=== PATIENT | male | born 1960 | race Caucasian/White ===

== ENCOUNTER 2021-04-06 08:00 | Outpatient (CLI) | payer MEDICARE ==
[2021-04-06 17:52] LABS: BASOPHILS # (AUTO) 0.1 10^3/uL (0.0-0.1); BASOPHILS % (AUTO) 0.8 %; EOSINOPHILS # (AUTO) 0.2 10^3/uL (0.0-0.7); EOSINOPHILS % (AUTO) 2.4 %; HCT - HEMATOCRIT 46.6 % (42.0-52.0); HGB - HEMOGLOBIN 15.1 g/dL (14.0-18.0); LYMPHOCYTES # (AUTO) 1.8 10^3/uL (1.5-3.5); LYMPHOCYTES % (AUTO) 23.8 %; MEAN CORPUSCULAR HEMOGLOBIN 31.1 pg (27.0-31.0); MEAN CORPUSCULAR HGB CONC 32.4 g/dL (32.0-36.0); MEAN CORPUSCULAR VOLUME 95.9 fL (80.0-94.0); MEAN PLATELET VOLUME 10.7 fL (7.4-11.4); MONOCYTES # (AUTO) 0.7 10^3/uL (0.0-1.0); MONOCYTES % (AUTO) 8.7 %; NEUTROPHILS # (AUTO) 4.8 10^3/uL (1.5-6.6); NEUTROPHILS % (AUTO) 63.8 %; PLT - PLATELET COUNT 98 10^3/uL (130-450); RED BLOOD COUNT 4.86 10^6/uL (4.70-6.10); RED CELL DISTRIBUTION WIDTH 13.5 % (12.0-15.0); WHITE BLOOD COUNT 7.5 x10^3/uL (4.8-10.8)
[2021-04-06 17:58] LABS: SLIDE REVIEW? Indicated
[2021-04-06 18:20] LABS: ALBUMIN 4.3 g/dL (3.2-5.5); ALBUMIN/GLOBULIN RATIO 1.1 (1.0-2.2); ALKALINE PHOSPHATASE 49 IU/L (42-121); ALT ALANINE AMINOTRANSFERASE 20 IU/L (10-60); AST ASPARTATE AMINOTRANSFERASE 22 IU/L (10-42); BILIRUBIN,TOTAL 1.2 mg/dL (0.2-1.0); BUN - BLOOD UREA NITROGEN 13 mg/dL (6-20); CALCIUM 9.4 mg/dL (8.5-10.3); CARBON DIOXIDE - CO2 27 mmol/L (21-32); CHLORIDE 106 mmol/L (101-111); CHOL/HDL RATIO 5.3 (<5.0); CHOLESTEROL 249 mg/dL; CREATININE 0.9 mg/dL (0.6-1.2); GFR - MDRD 86 (>89); GLUCOSE 105 mg/dL (70-100); HDL CHOLESTEROL 47 mg/dL; LDL CHOLESTEROL,CALCULATED 176 mg/dL; LDL/HDL RATIO 3.7 (<3.6); POTASSIUM 4.2 mmol/L (3.5-5.0); SODIUM 141 mmol/L (135-145); TOTAL PROTEIN 8.2 g/dL (6.7-8.2); TRIGLYCERIDES 130 mg/dL; VLDL CHOLESTEROL 26 mg/dL
[2021-04-06 18:22] LABS: THYROID STIMULATING HORMONE 0.84 uIU/mL (0.34-5.60)
[2021-04-06 18:23] LABS: PLATELET ESTIMATE, MANUAL DECREASED (<130,000) (NORMAL); PLATELET MORPHOLOGY NORMAL APPEARANCE (NORMAL); RBC MORPHOLOGY (MULTIPLE) NORMAL APPEARANCE (NORMAL); WBC MORPHOLOGY (MULTIPLE) NORMAL APPEARANCE (NORMAL)
== END 2021-04-06 23:59 | disposition home or self-care (01) ==
LOC: LAB.N 08:00
PROVIDERS: ATTEND Physician Assistant Medical
DX: I10 Essential (primary) hypertension (principal); Z12.5 Encounter for screening for malignant neoplasm of prostate
CPT/HCPCS: 36415; 80053; 80061; 84443; 85025; G0103; 83721; 84153

== ENCOUNTER 2021-05-02 13:12 | Outpatient (CLI) | payer MEDICARE | END 2021-05-02 13:13 | disposition critical access hospital (66) | LOC: EMS 13:12 | DX: R56.9 Unspecified convulsions (principal) | CPT/HCPCS: A0425; A0427 ==

== ENCOUNTER 2021-05-02 13:31 | Emergency (ER) | payer MEDICARE ==
[2021-05-02 14:09] LABS: BASOPHILS # (AUTO) 0.1 10^3/uL (0.0-0.1); BASOPHILS % (AUTO) 0.5 %; EOSINOPHILS # (AUTO) 0.2 10^3/uL (0.0-0.7); EOSINOPHILS % (AUTO) 1.7 %; HCT - HEMATOCRIT 45.6 % (42.0-52.0); HGB - HEMOGLOBIN 15.1 g/dL (14.0-18.0); MEAN CORPUSCULAR HEMOGLOBIN 31.3 pg (27.0-31.0); MEAN CORPUSCULAR HGB CONC 33.1 g/dL (32.0-36.0); MEAN CORPUSCULAR VOLUME 94.4 fL (80.0-94.0); MEAN PLATELET VOLUME 9.8 fL (7.4-11.4); MONOCYTES # (AUTO) 0.7 10^3/uL (0.0-1.0); MONOCYTES % (AUTO) 5.8 %; NEUTROPHILS # (AUTO) 9.5 10^3/uL (1.5-6.6); NEUTROPHILS % (AUTO) 75.1 %; PLT - PLATELET COUNT 203 10^3/uL (130-450); RED BLOOD COUNT 4.83 10^6/uL (4.70-6.10); WHITE BLOOD COUNT 12.7 x10^3/uL (4.8-10.8)
[2021-05-02] MEDS ORDERED: BACITRACIN ZINC OINT 1 PACKET TOP STA (14:13)
--- NOTE | 2021-05-02 14:13 | ED Physician Documentation ---
History of Present Illness - Stated complaint Stated Complaint: SZ - Chief complaint Chief Complaint: Neuro - History obtained from History obtained from: Patient, EMS - History of Present Illness Timing: Today Pain level max: 6 Pain level now: 5 - Additonal information Additional information: Patient is a 60-year-old male who states that he was out in his yard today and woke up on the ground. Unsure what happened. EMS states that the neighbors reported seeing him have a seizure. Patient states he has no history of seizures. Does have a history of skin cancer affecting the left shoulder and left side of the neck. No known metastases. He has been followed by dermatology for this. Denies any alcohol use. Denies any drug use. Other than marijuana. Patient is not on blood thinners. Currently complains of a headache, neck pain and facial pain. Patient states that his skin cancer is not melanoma. He believes it is a basal cell carcinoma. Review of Systems Ten Systems: 10 systems reviewed and negative Constitutional: denies: Fever, Chills Nose: denies: Rhinorrhea / runny nose, Congestion Throat: denies: Dental pain / toothache, Sore throat Cardiac: denies: Chest pain / pressure, Palpitations Respiratory: denies: Cough GI: reports: Nausea, Vomiting (after the seizure). denies: Abdominal Pain, Diarrhea Skin: denies: Rash Musculoskeletal: denies: Neck pain, Back pain Neurologic: denies: Headache PD PAST MEDICAL HISTORY - Past Medical History Past Medical History: Yes Cardiovascular: Hypertension - Past Surgical History Past Surgical History: No - Allergies Allergies/Adverse Reactions: Allergies Allergy/AdvReac Type Severity Reaction Status Date / Time Unable to Assess Allergy Verified 05/02/21 13:41 - Social History Does the pt smoke?: Yes Smoking Status: Former smoker Does the pt drink ETOH?: Yes Does the pt have substance abuse?: No - Immunizations Immunizations are current?: Yes - POLST Patient has POLST: No PD ED PE NORMAL - Vitals Vital signs reviewed: Yes - General General: Alert and oriented X 3, No acute distress, Well developed/nourished - HEENT HEENT: PERRL, EOMI, Moist mucous membranes, Other (Abrasions to the bridge of the nose, bruising to the forehead and the left side of the face. Mild bite to the left side of the tongue. Otherwise normal examination. Mild tenderness diffusely over the face) - Neck Neck: Supple, no meningeal sign, Other (Mild upper C-spine tenderness to palpation. No step-off or deformity) - Cardiac Cardiac: RRR, Strong equal pulses - Respiratory Respiratory: No respiratory distress, Clear bilaterally - Abdomen Abdomen: Normal bowel sounds, Soft, Non tender, Non distended - Back Back: No spinal TTP - Derm Derm: Warm and dry, Other (Abrasions to the bilateral hands and arms.) - Extremities Extremities: No edema, No calf tenderness / cord - Neuro Neuro: Alert and oriented X 3, inserting press operator 2-12 intact, No motor deficit, No sensory deficit, Normal speech Eye Opening: Spontaneous Motor: Obeys Commands Verbal: Oriented GCS Score: 15 - Psych Psych: Normal mood, Normal affect Results - Vitals Vitals: Vital Signs - 24 hr 05/02/21 05/02/21 05/02/21 13:37 15:41 16:26 Temperature 36.4 C L 37.0 C Heart Rate 94 63 90 Respiratory 16 14 18 Rate Blood Pressure 145/99 H 157/93 H 151/93 H O2 Saturation 98 98 97 Oxygen O2 Source Room air - Labs Labs: Laboratory Tests 05/02/21 05/02/21 05/02/21 13:43 14:05 14:05 WBC 12.7 H RBC 4.83 Hgb 15.1 Hct 45.6 MCV 94.4 H MCH 31.3 H MCHC 33.1 RDW 13.0 Plt Count 203 MPV 9.8 Neut # (Auto) 9.5 H Lymph # (Auto) 2.0 Russell # (Auto) 0.7 Eos # (Auto) 0.2 Baso # (Auto) 0.1 Absolute Nucleated RBC 0.00 Nucleated RBC % 0.0 Sodium 138 Potassium 4.2 Chloride 103 Carbon Dioxide 19 L Anion Gap 16.0 H BUN 12 Creatinine 1.0 Estimated GFR (MDRD) 76 L Glucose 158 H Calcium 9.7 Total Bilirubin 0.7 AST 24 ALT 19 Alkaline Phosphatase 58 Total Protein 8.3 H Albumin 4.4 Globulin 3.9 Albumin/Globulin Ratio 1.1 Lipase 25 TSH Urine Color YELLOW Urine Clarity CLEAR Urine pH 5.5 Ur Specific [place] >=1.030 H Urine Protein 100 H Urine Glucose (UA) NEGATIVE Urine Ketones NEGATIVE Urine Occult Blood MODERATE H Urine Nitrite NEGATIVE Urine Bilirubin NEGATIVE Urine Urobilinogen 0.2 (NORMAL) Ur Leukocyte Esterase NEGATIVE Urine RBC 6-10 H Urine WBC 0-3 Ur Squamous Epith Cells RARE Squamous Urine Bacteria Rare Urine Mucus Few Strands Ur Microscopic Review INDICATED Urine Culture Comments NOT INDICATED Salicylates < 6.0 Urine Opiates Screen NEGATIVE Ur Oxycodone Screen NEGATIVE Urine Methadone Screen NEGATIVE Ur Propoxyphene Screen NEGATIVE Acetaminophen < 10 L Ur Barbiturates Screen NEGATIVE Ur Tricyclics Screen NEGATIVE Ur Phencyclidine Scrn NEGATIVE Ur Amphetamine Screen NEGATIVE U Methamphetamines Scrn NEGATIVE U Benzodiazepines Scrn NEGATIVE Urine Cocaine Screen NEGATIVE U Cannabinoids Screen POSITIVE H Ethyl Alcohol < 5.0 05/02/21 14:05 WBC RBC Hgb Hct MCV MCH MCHC RDW Plt Count MPV Neut # (Auto) Lymph # (Auto) Russell # (Auto) Eos # (Auto) Baso # (Auto) Absolute Nucleated RBC Nucleated RBC % Sodium Potassium Chloride Carbon Dioxide Anion Gap BUN Creatinine Estimated GFR (MDRD) Glucose Calcium Total Bilirubin AST ALT Alkaline Phosphatase Total Protein Albumin Globulin Albumin/Globulin Ratio Lipase TSH 2.33 Urine Color Urine Clarity Urine pH Ur Specific [place] Urine Protein Urine Glucose (UA) Urine Ketones Urine Occult Blood Urine Nitrite Urine Bilirubin Urine Urobilinogen Ur Leukocyte Esterase Urine RBC Urine WBC Ur Squamous Epith Cells Urine Bacteria Urine Mucus Ur Microscopic Review Urine Culture Comments Salicylates Urine Opiates Screen Ur Oxycodone Screen Urine Methadone Screen Ur Propoxyphene Screen Acetaminophen Ur Barbiturates Screen Ur Tricyclics Screen Ur Phencyclidine Scrn Ur Amphetamine Screen U Methamphetamines Scrn U Benzodiazepines Scrn Urine Cocaine Screen U Cannabinoids Screen Ethyl Alcohol - Rads (name of study) head CT Radiology: Prelim report reviewed, EMP read contemporaneously, See rad report maxillofacial CT Radiology: Prelim report reviewed, EMP read contemporaneously, See rad report cervical spine CT Radiology: Prelim report reviewed, EMP read contemporaneously, See rad report PD MEDICAL DECISION MAKING - ED course Complexity details: reviewed results, re-evaluated patient, considered differential, d/w patient ED course: Unclear etiology of the patient's symptoms. Seems likely that he had a seizure. No acute findings on laboratory testing, CT scans. Denies any alcohol use or withdrawal. Denies any benzodiazepine use or withdrawal. We will have him follow-up with his doctor for an MRI and EEG. Patient counseled regarding signs and symptoms for which I believe and urgent re-evaluation would be necessary. Patient with good understanding of and agreement to plan and is comfortable going home at this time This document was made in part using voice recognition software. While efforts are made to proofread this document, sound alike and grammatical errors may occur. C-spine cT IMPRESSION: No visualized fracture. 8 mm right parotid soft tissue density as above. While this could represent a prominent lymph node, given morphology, differential diagnosis of common benign etiology such as pleomorphic adenoma, Morris's tumor, lymph node and most likely malignant etiologies. Maxillofacial CT IMPRESSION: 1. No visualized fracture or dislocation. 2. Partially visualized 8 mm right parotid gland soft tissue density. Although this could represent a lymph node, etiology such as pleomorphic adenoma, Sand[place]'s tumor or less likely malignancy cannot be excluded. ENT consult/FNA may be obtained as indicated. head CT: no acute findings Departure - Departure Disposition: 01 Home, Self Care Clinical Impression: Seizure-like activity Condition: Good Instructions: ED Seizure New Onset Unk Cause Follow-Up: [facility] [Provider Group] [facility] [Provider Group] [facility] [Provider Group] Comments: You need to follow-up with your primary care doctor to receive a referral for an MRI and EEG. These should both be done urgently. You should not drive or operate machinery until cleared by your doctor. Also avoid swimming pools, baths, smith, etc. as you could have a seizure and potentially drown. Return if you worsen. You should follow up with ENT for the parotid gland mass. Ct maxillofacial: 1. No visualized fracture or dislocation. 2. Partially visualized 8 mm right parotid gland soft tissue density. Although this could represent a lymph node, etiology such as pleomorphic adenoma, Morris's tumor or less likely malignancy cannot be excluded. ENT consult/FNA may be obtained as indicated. Discharge Date/Time: 05/02/21 16:29
[2021-05-02] MEDS ORDERED: PROMETHAZINE INJ 25 MG in SODIUM CHLORIDE 0.9% 50 ML IV STA (14:14)
[2021-05-02 14:29] LABS: ACETAMINOPHEN < 10 ug/mL (10-30); ALBUMIN 4.4 g/dL (3.2-5.5); ALBUMIN/GLOBULIN RATIO 1.1 (1.0-2.2); ALKALINE PHOSPHATASE 58 IU/L (42-121); ALT ALANINE AMINOTRANSFERASE 19 IU/L (10-60); AST ASPARTATE AMINOTRANSFERASE 24 IU/L (10-42); BILIRUBIN,TOTAL 0.7 mg/dL (0.2-1.0); BUN - BLOOD UREA NITROGEN 12 mg/dL (6-20); CALCIUM 9.7 mg/dL (8.5-10.3); CARBON DIOXIDE - CO2 19 mmol/L (21-32); CHLORIDE 103 mmol/L (101-111); ETOH - ETHANOL < 5.0 mg/dL; GFR - MDRD 76 (>89); GLUCOSE 158 mg/dL (70-100); LIPASE 25 U/L (22-51); POTASSIUM 4.2 mmol/L (3.5-5.0); SALICYLATE < 6.0 mg/dL; SODIUM 138 mmol/L (135-145); TOTAL PROTEIN 8.3 g/dL (6.7-8.2)
[2021-05-02 14:42] LABS: MUDS CUTOFF CONCENTRATIONS CUTOFF CONC BELOW:
[2021-05-02 14:45] LABS: BILIRUBIN,URINE NEGATIVE (NEGATIVE); GLUCOSE, URINE (UA) NEGATIVE (NEGATIVE); KETONES,URINE (UA) NEGATIVE (NEGATIVE); LEUKOCYTE ESTERASE, URINE NEGATIVE (NEGATIVE); NITRITE,URINE NEGATIVE (NEGATIVE); OCCULT BLOOD,URINE MODERATE (NEGATIVE); PH,URINE 5.5 PH (5.0-7.5); PROTEIN,URINE 100 mg/dL (NEGATIVE); UROBILINOGEN,URINE 0.2 (NORMAL) E.U./dL (NORMAL)
[2021-05-02 14:48] LABS: CLARITY,URINE CLEAR (CLEAR)
[2021-05-02 14:54] LABS: AMPHETAMINE SCREEN,URINE NEGATIVE (NEGATIVE); BARBITURATE SCREEN,UR NEGATIVE (NEGATIVE); BENZODIAZEPINES SCREEN, URINE NEGATIVE (NEGATIVE); COCAINE SCREEN URINE NEGATIVE (NEGATIVE); METHADONE SCREEN, URINE NEGATIVE (NEGATIVE); METHAMPHETAMINES SCREEN, URINE NEGATIVE (NEGATIVE); OPIATE SCREEN, URINE NEGATIVE (NEGATIVE); OXYCODONE SCREEN, URINE NEGATIVE (NEGATIVE); PROPOXYPHENE SCREEN, URINE NEGATIVE (NEGATIVE); THC CANNABINOID SCREEN, URINE POSITIVE (NEGATIVE); TRICYCLIC ANTIDEPRESSANT,URINE NEGATIVE (NEGATIVE)
--- OUTSIDE RECORDS SUMMARY | 2021-05-02 15:00 | EXTERNAL MEDICAL SUMMARY RPT | Continuity of Care Document ---
:1960 Demographics Phone Unavailable Preferred Language Unknown Marital Status Unknown Scientology Affiliation Unknown Race Unknown Ethnic Group Unknown Author Organization [facility] Address [address] [id number] Phone Allergies Encounters Medications Problems Results
--- NOTE | 2021-05-02 15:14 | CT Report ---
PROCEDURE: HEAD WO INDICATIONS: seizure, headache TECHNIQUE: Noncontrast 4.5 mm thick angled axial sections acquired from the foramen magnum to the vertex. For r adiation dose reduction, the following was used: automated exposure control, adjustment of mA and/or kV according to patient size. COMPARISON: CT cervical spine and maxillofacial 05/02/2021 FINDINGS: Image quality: Excellent. CSF spaces: Basal cisterns are patent. No extra-axial fluid collections. Ventricles are normal in size and shape. Brain: No midline shift. No intracranial masses or hemorrhage. Negron-white matter interface is norm al. Skull and face: Calvarium and visualized facial bones are intact, without suspicious lesions. Sinuses: Visualized sinuses demonstrate small mucous retention cyst versus polyp in the left sphenoi d sinus. IMPRESSION: 1. No acute intracranial process. Reviewed by: Montse Minaya MD on 05/02/2021 3:13 PM PDT Approved by: Montse Minaya MD on 05/02/2021 3:13 PM PDT Station ID: [id number]
--- NOTE | 2021-05-02 15:27 | CT Report ---
PROCEDURE: CERVICAL SPINE WO INDICATIONS: seizure, neck pain TECHNIQUE: Noncontrast 3 mm thick sections acquired from the skull base to the T4 level. Sagittal and coronal r eformats were then constructed. For radiation dose reduction, the following was used: automated exp osure control, adjustment of mA and/or kV according to patient size. COMPARISON: None. FINDINGS: Image quality: Excellent. Bones: No fractures or dislocations. Visualized superior ribs are intact. Soft tissues: Prevertebral soft tissues are normal in thickness. No paravertebral hematomas. No ap ical pneumothoraces. 8 mm right posterior parotid soft tissue density. IMPRESSION: No visualized fracture. 8 mm right parotid soft tissue density as above. While this could represent a prominent lymph node, g iven morphology, differential diagnosis of common benign etiology such as pleomorphic adenoma, [place]art[place] n's tumor, lymph node and most likely malignant etiologies. Reviewed by: Montse Minaya MD on 05/02/2021 3:26 PM PDT Approved by: Montse Minaya MD on 05/02/2021 3:26 PM PDT Station ID: [id number]
--- NOTE | 2021-05-02 15:32 | CT Report ---
PROCEDURE: MAXILLOFACIAL WO INDICATIONS: seizure, facial pain, bruising TECHNIQUE: Noncontrast 1.5 mm thick axial images acquired from the mandible through the frontal sinuses, with co farhana and sagittal reformatting. For radiation dose reduction, the following was used: automated ex posure control, adjustment of mA and/or kV according to patient size. COMPARISON: None. FINDINGS: Image quality: Excellent. Bones and teeth: Orbital blackwood are intact. Sinus blackwood show no fracture or deformity. Nasal bones and septum are intact. Visualized portions of the mandible demonstrate no fractures or subluxation. Zygomatic arches are intact. Pterygoid plates are intact. Visualized portions of the skull base an d auditory canals are intact. Sinuses: Scattered areas of low pansinus mucosal thickening are noted with small mucocele versus rete ntion cyst in the left sphenoid sinus.. Mastoid air cells are aerated. Soft tissues: 8 mm soft tissue density partially visualized along medial aspect of the right parotid gland.. No soft tissue lacerations or debris. Vascular: Visualized vascular structures appear normal in the absence of contrast. Bony vascular fo ramina and canals are intact. IMPRESSION: 1. No visualized fracture or dislocation. 2. Partially visualized 8 mm right parotid gland soft tissue density. Although this could represent a lymph node, etiology such as pleomorphic adenoma, [place]'s tumor or less likely malignancy cannot b e excluded. ENT consult/FNA may be obtained as indicated. Reviewed by: Montse Minaya MD on 05/02/2021 3:31 PM PDT Approved by: Montse Minaya MD on 05/02/2021 3:31 PM PDT Station ID: [id number]
[2021-05-02 15:39] LABS: BACTERIA,URINE Rare /HPF (None Seen); MUCUS,URINE Few Strands; SQUAMOUS EPITHELIAL CELL,UR RARE Squamous (<= Few); WBC,URINE 0-3 /HPF (0-3)
[2021-05-02 16:27] VITALS: BP 151/93
== END 2021-05-02 16:29 | disposition home or self-care (01) ==
LOC: EDUNIT# → ED 13:31
DX: R56.9 Unspecified convulsions (principal); R11.2 Nausea with vomiting, unspecified; M54.2 Cervicalgia; S00.83XA Contusion of other part of head, initial encounter; S00.31XA Abrasion of nose, initial encounter; S60.512A Abrasion of left hand, initial encounter; S60.511A Abrasion of right hand, initial encounter; S40.812A Abrasion of left upper arm, initial encounter; S40.811A Abrasion of right upper arm, initial encounter; S00.572A Other superficial bite of oral cavity, initial encounter; X58.XXXA Exposure to other specified factors, initial encounter; Y93.H9 Activity, other involving exterior property and land maintenance, building and construction; Y92.007 Garden or yard of unspecified non-institutional (private) residence as the place of occurrence of the external cause; K11.9 Disease of salivary gland, unspecified; I10 Essential (primary) hypertension; Z85.828 Personal history of other malignant neoplasm of skin; Z87.891 Personal history of nicotine dependence
CPT/HCPCS: 36415; 70450; 70486; 72125; 80053; 80306; 80307; 81001; 83690; 84443; 85025; 93005; 96365; 99284; A9270; G0480; J7040; 80320; 80329; 81003; 87086

== ENCOUNTER 2022-05-08 08:00 | Outpatient (CLI) | payer MEDICARE ==
[2022-05-08 11:43] LABS: CALCIUM 9.6 mg/dL (8.5-10.3); CREATININE 0.8 mg/dL (0.6-1.2); POTASSIUM 4.5 mmol/L (3.5-5.0)
== END 2022-05-08 23:59 | disposition home or self-care (01) ==
LOC: LAB.N 08:00
PROVIDERS: ATTEND Family Medicine
DX: I10 Essential (primary) hypertension (principal); R55 Syncope and collapse; R56.9 Unspecified convulsions
CPT/HCPCS: 36415; 80048; 80177

== ENCOUNTER 2023-01-11 19:03 | Outpatient (CLI) | payer MEDICARE | END 2023-01-13 18:41 | disposition short-term general hospital (02) | LOC: EMS 19:03 | DX: R46.89 Other symptoms and signs involving appearance and behavior (principal); R41.0 Disorientation, unspecified; R56.9 Unspecified convulsions | CPT/HCPCS: A0425; A0427 ==